=== PATIENT | male | born 1995 | race Caucasian/White ===

== ENCOUNTER 2017-03-25 21:36 | Emergency (ER) | payer SELFPAY ==
[~2017-03-25] VITALS: Ht 170.2 cm; Wt 97.7 kg
[~2017-03-25 21:36] MED LIST: NORCO 325 MG-51 TAB PO
[2017-03-25 21:57] VITALS: TEMP 99.2
[2017-03-26 00:16] LABS: CALCIUM 9.4 mg/dL (8.4-10.2); CREATININE, serum 0.77 mg/dL (0.66-1.25); POTASSIUM 3.7 mmol/L (3.4-5.0)
[2017-03-26 00:27] LABS: BASO % 0.5 % (0.0-2.0); EOS # 0.2 (0.0-0.7); EOS % 3.1 % (0-4.0); GRAN # 3.5 (1.4-6.5); GRAN % 47.4 % (42.2-75.2); HEMATOCRIT 42.8 % (36.0-47.0); HEMOGLOBIN 14.8 g/dl (12.5-16.1); LYMPH # 2.7 (1.2-3.4); LYMPH % 35.9 % (20.0-51.0); MEAN CELL VOLUME 83 fl (80.0-95.0); MEAN CORPUSCULAR HEMOGLOBIN 29 pg (26.0-32.0); MEAN CORPUSCULAR HGB CONC 35 g/dl (33.0-37.0); MONO # 0.8 (0.1-0.6); MONO % 11.2 % (1.7-9.3); PLATELET COUNT 270 K/mm3 (130-400); RED BLOOD COUNT 5.13 M/mm3 (4.20-5.60); REDCELL DISTRIBUTION WIDTH-CV 11.9 % (11.5-14.5); WHITE BLOOD COUNT 7.4 K/mm3 (4.8-10.8)
[2017-03-26 00:28] LABS: TROPONIN-I 0.015 ng/mL (0.000-0.034)
[2017-03-26] MEDS ORDERED: EC-NAPROSYN375 MG PO (00:49)
[2017-03-26 01:23] VITALS: BP 134/68; PULSE 86
== END 2017-03-26 01:24 | disposition home or self-care (01) ==
LOC: COL.ER 21:36
PROVIDERS: Emergency Medicine
DX: R07.9 Chest pain, unspecified (principal); R06.02 Shortness of breath
CPT/HCPCS: J8540

== ENCOUNTER 2021-03-03 15:01 | Emergency (ER) | payer SELFPAY ==
[~2021-03-03] VITALS: Ht 175.3 cm; Wt 136.4 kg
[~2021-03-03 15:01] MED LIST changes: +EC-NAPROSYN375 MG PO
[2021-03-03 16:30] LABS: HEMATOCRIT 44.7 % (42.0-52.0); HEMOGLOBIN 15.6 g/dl (13.5-18.0); MEAN CELL VOLUME 82 fl (80.0-100.0); MEAN CORPUSCULAR HEMOGLOBIN 29 pg (27.0-31.0); MEAN CORPUSCULAR HGB CONC 35 g/dl (33.0-37.0); MEAN PLATELET VOLUME 9.2 fl (7.4-10.4); PLATELET COUNT 182 K/mm3 (130-400); RED BLOOD COUNT 5.44 M/mm3 (4.20-5.60); REDCELL DISTRIBUTION WIDTH-CV 12.7 % (11.5-14.5)
[2021-03-03 16:44] LABS: ALANINE AMINOTRANSFERASE 360 U/L (4-49); ALBUMIN 4.4 gm/dL (3.5-5.0); ALKALINE PHOSPHATASE 127 U/L (50-136); ANION GAP 10 mmol/L (7-16); AST,SGOT 217 U/L (15-37); BILIRUBIN,TOTAL 0.5 mg/dL (0.0-1.0); BLOOD UREA NITROGEN 9 mg/dL (9-20); CALCIUM 9.1 mg/dL (8.4-10.2); CARBON DIOXIDE 25 mmol/L (22-30); CHLORIDE 100 mmol/L (98-107); CREATININE, serum 0.72 (0.66-1.25); GLUCOSE 122 mg/dL (74-106); POTASSIUM 4.1 mmol/L (3.4-5.0); SODIUM 135 mmol/L (137-145)
[2021-03-03 16:56] LABS: TROPONIN-I < 0.012 ng/mL (0.000-0.035)
[2021-03-03 17:09] LABS: LYMPHOCYTE 22 % (20.0-51.0); NEUTROPHILS 66 % (42.0-75.2)
[2021-03-03 17:10] LABS: PLATELET ESTIMATE NORMAL (NORMAL)
[2021-03-03 17:59] VITALS: BP 124/64; PULSE 88; TEMP 100
== END 2021-03-03 17:50 | disposition home or self-care (01) ==
LOC: COL.ER 15:01
PROVIDERS: Personal Emergency Response Attendant
DX: U07.1 COVID-19 (principal)
CPT/HCPCS: J7030